=== PATIENT | male | born 1995 | race Two or more races ===

== ENCOUNTER 2017-06-22 17:20 | Emergency (ER) | payer SELFPAY ==
[~2017-06-22] VITALS: Ht 170.2 cm; Wt 63.5 kg
[~2017-06-22 17:20] MED LIST: NORPTMEDS CO
[2017-06-22 17:54] VITALS: BP 109/59
[2017-06-22] MEDS ORDERED: LIDOCAINE VISCOUS 2% 15ML UD PO ONE (21:15)
[2017-06-22] MEDS ORDERED: ALUM & MAG HYDROX-SIMETH LIQ(MAALOX) 30 ML PO ONE (21:15)
== END 2017-06-22 21:34 | disposition home or self-care (01) ==
LOC: ER 17:28
DX: K29.70 Gastritis, unspecified, without bleeding (principal)

== ENCOUNTER 2018-05-29 18:45 | Emergency (ER) | payer MEDICAID ==
[~2018-05-29] VITALS: Ht 167.6 cm; Wt 59.0 kg
[2018-05-29 19:02] VITALS: BP 124/79
== END 2018-05-30 00:34 | disposition home or self-care (01) ==
LOC: ER 18:45
DX: J06.9 Acute upper respiratory infection, unspecified (principal)

== ENCOUNTER 2018-06-01 17:38 | Emergency (ER) | payer MEDICAID ==
[~2018-06-01] VITALS: Ht 167.6 cm; Wt 62.6 kg
[2018-06-01 18:17] VITALS: BP 128/87
[2018-06-01] MEDS ORDERED: cefTRIAXone SOD 1,000 MG VL IM ONE (19:00)
[2018-06-01] MEDS ORDERED: methylPREDNISolone SOD SUCC 125 MG/2 ML VL IM ONE (19:00)
== END 2018-06-01 19:51 | disposition home or self-care (01) ==
LOC: ER 17:38
DX: J06.9 Acute upper respiratory infection, unspecified (principal)
CPT/HCPCS: 96372; 99283; J0696; J2930

== ENCOUNTER 2020-04-22 12:18 | Emergency (ER) | payer MEDICAID ==
[~2020-04-22] VITALS: Ht 167.6 cm; Wt 83.9 kg
[2020-04-22 12:59] VITALS: BP 123/80
[2020-04-22] MEDS ORDERED: ALBUTEROL SULF 2.5 MG/0.5ML(0.5%) NEB SOLN NEB ONE (13:30)
[2020-04-22] MEDS ORDERED: IPRATROPIUM BROM 0.5 MG/2.5ML INH SOL NEB ONE (13:30)
== END 2020-04-22 15:03 | disposition home or self-care (01) ==
LOC: ER 12:18
DX: J98.01 Acute bronchospasm (principal)
CPT/HCPCS: 71045; 93005; 94640; 99284; J7644

== ENCOUNTER 2020-10-07 06:07 | Emergency (ER) | payer MEDICAID ==
[~2020-10-07] VITALS: Ht 170.2 cm; Wt 62.6 kg
[2020-10-07 06:49] VITALS: BP 129/91
== END 2020-10-07 08:02 | disposition home or self-care (01) ==
LOC: ER 06:07
DX: S30.812A Abrasion of penis, initial encounter (principal); B37.42 Candidal balanitis; X58.XXXA Exposure to other specified factors, initial encounter; Y93.89 Activity, other specified; Y92.89 Other specified places as the place of occurrence of the external cause; Y99.8 Other external cause status

== ENCOUNTER 2020-11-10 20:07 | Emergency (ER) | payer MEDICAID ==
[~2020-11-10] VITALS: Ht 167.6 cm; Wt 65.8 kg
[2020-11-10 22:58] VITALS: BP 118/82
== END 2020-11-11 00:11 | disposition home or self-care (01) ==
LOC: ER 20:09
DX: L73.9 Follicular disorder, unspecified (principal); B37.42 Candidal balanitis; K62.89 Other specified diseases of anus and rectum

== ENCOUNTER 2021-01-31 23:17 | Emergency (ER) | payer MEDICAID ==
[~2021-01-31] VITALS: Ht 167.6 cm; Wt 63.5 kg
[2021-02-01 01:00] VITALS: BP 112/74
== END 2021-02-01 01:43 | disposition home or self-care (01) ==
LOC: ER 23:17
DX: F41.9 Anxiety disorder, unspecified (principal); F17.200 Nicotine dependence, unspecified, uncomplicated; F12.10 Cannabis abuse, uncomplicated; F32.9 Major depressive disorder, single episode, unspecified
CPT/HCPCS: 71045

== ENCOUNTER 2021-02-21 15:16 | Emergency (ER) | payer MEDICAID ==
[~2021-02-21] VITALS: Ht 167.6 cm; Wt 63.5 kg
[2021-02-21 21:43] VITALS: BP 114/78
== END 2021-02-21 23:13 | disposition home or self-care (01) ==
LOC: ER 15:16
DX: B37.42 Candidal balanitis (principal); L73.9 Follicular disorder, unspecified

== ENCOUNTER 2021-09-09 06:04 | Emergency (ER) | payer MEDICAID ==
[~2021-09-09] VITALS: Ht 167.6 cm; Wt 63.5 kg
[2021-09-09 06:14] VITALS: BP 109/62
[2021-09-09] MEDS ORDERED: KETO1AER EX (06:53)
== END 2021-09-09 07:17 | disposition home or self-care (01) ==
LOC: ER 06:04
DX: B37.42 Candidal balanitis (principal); Z79.899 Other long term (current) drug therapy

== ENCOUNTER 2021-09-24 23:18 | Emergency (ER) | payer MEDICAID ==
[~2021-09-24] VITALS: Ht 167.6 cm; Wt 64.0 kg
[~2021-09-24 23:18] MED LIST changes: +KETO1AER EX
[2021-09-25 00:47] VITALS: BP 124/82
== END 2021-09-25 07:12 | disposition left against medical advice (07) ==
LOC: ER 23:18
DX: B37.9 Candidiasis, unspecified (principal); Z53.21 Procedure and treatment not carried out due to patient leaving prior to being seen by health care provider

== ENCOUNTER 2021-11-08 06:52 | Emergency (ER) | payer MEDICAID ==
[~2021-11-08] VITALS: Ht 167.6 cm; Wt 61.7 kg
[2021-11-08 07:31] VITALS: BP 124/82
[2021-11-08] MEDS ORDERED: KETO2AER3 EX (07:48)
[2021-11-08] MEDS ORDERED: CEPH-509 PO (07:48)
== END 2021-11-08 08:10 | disposition home or self-care (01) ==
LOC: ER 06:52
DX: B37.42 Candidal balanitis (principal); K21.9 Gastro-esophageal reflux disease without esophagitis; F17.210 Nicotine dependence, cigarettes, uncomplicated

== ENCOUNTER 2022-07-04 12:14 | Emergency (ER) | payer MEDICAID ==
[~2022-07-04] VITALS: Ht 167.6 cm; Wt 63.0 kg
[~2022-07-04 12:14] MED LIST changes: +CEPH-509 PO; +CEPH-510 PO; +KETO2AER3 EX
[2022-07-04 14:57] VITALS: BP 136/77
[2022-07-04 16:25] LABS: Urine Bacteria NONE SEEN /hpf (None Seen); Urine Blood 1+ /uL (Negative); Urine Mucus FEW (None Seen); Urine Specific Gravity 1.018 (1.001-1.035); Urine WBC 1 /hpf (0 - 3)
[2022-07-04] MEDS ORDERED: cefTRIAXone SOD 1,000 MG VL IM ONE (16:45)
[2022-07-04] MEDS ORDERED: CEPH-510 PO (17:16)
[2022-07-04] MEDS ORDERED: FLUC150T38 PO (17:16)
[2022-07-04] MEDS ORDERED: HYD1TP TOP (17:16)
[2022-07-04] MEDS ORDERED: PETROIN22 EX (17:23)
== END 2022-07-04 17:29 | disposition home or self-care (01) ==
LOC: ER 12:14
DX: N48.1 Balanitis (principal); N30.90 Cystitis, unspecified without hematuria; K21.9 Gastro-esophageal reflux disease without esophagitis; F17.210 Nicotine dependence, cigarettes, uncomplicated
CPT/HCPCS: 74176; 81001; 87491; 87591; 96372; 99285; J0696

== ENCOUNTER 2022-09-26 19:00 | Emergency (ER) | payer MEDICAID ==
[~2022-09-26] VITALS: Ht 170.2 cm; Wt 63.0 kg
[~2022-09-26 19:00] MED LIST changes: +FLUC150T38 PO; +HYD1TP TOP; +PETROIN22 EX
[2022-09-26 20:53] LABS: Urine Bacteria NONE SEEN /hpf (None Seen); Urine Blood 2+ /uL (Negative); Urine Mucus FEW (None Seen); Urine WBC 1 /hpf (0 - 3)
[2022-09-26 23:10] VITALS: BP 140/83
== END 2022-09-26 23:31 | disposition home or self-care (01) ==
LOC: ER 19:00
DX: Z00.00 Encounter for general adult medical examination without abnormal findings (principal); N50.819 Testicular pain, unspecified; K21.9 Gastro-esophageal reflux disease without esophagitis; F17.210 Nicotine dependence, cigarettes, uncomplicated
CPT/HCPCS: 81001; 86592

== ENCOUNTER 2024-07-25 18:46 | Emergency (ER) | payer MEDICAID ==
[~2024-07-25] VITALS: Ht 167.6 cm; Wt 62.8 kg
--- NOTE | 2024-07-25 20:20 | ED.PDOC ---
General HPI Comments 29-year-old male presents to ER with penile complaint x3 weeks. Patient reports that he has been experiencing "spots and itching" to penis x3 weeks. States that he last had unprotected sex with a female three days ago and notes that he did test positive for syphilis in 2022. Patient presents to ER ambulatory on arrival, alert and oriented x4, with steady gait, in no distress with vitals stable and is noted to be a very poor historian. Denies fever, body aches, chills, night sweats, fatigue, n/v, shortness of breath, chest pain, headache, body aches/joint pain, back/flank pain, further skin changes, penile discharge/changes in urination or any further symptoms/complaints Chief Complaint: Penile Problem Time Seen by MD: 19:05 Primary Care Provider: [facility] Reviewed notes: Nurses Notes, Medications, Allergies Allergies: Coded Allergies: NO KNOWN ALLERGIES (Unverified , 05/29/18) Home Meds Active Scripts Petrolatum (PETROLEUM JELLY) Oin, 1 APPLIC EX BID, #368 GRAMS 0 Refills Apply topical to external perineal area BID for 7 days Prov:[facility]ONY [facility] 07/04/22 Hydrocortone (Hydrocortisone 1%) 1 Applic Ap, 1 APPLIC TOP BID for 7 Days, #30 GRAMS 0 Refills Prov:YONY WILEY [facility] 07/04/22 Fluconazole (Diflucan) 150 Mg Tab, 1 TAB PO ONCE, #1 TAB 0 Refills Prov:YONY WILEY [facility] 07/04/22 Cephalexin ( Keflex 500) 500 Mg Cap, 1 CAP PO QID for 10 Days, #40 CAP 0 Refills Prov:YONY WILEY [facility] 07/04/22 Cephalexin ( Keflex 500) 500 Mg Cap, 1 CAP PO QID, #28 CAP Prov:KELLEY KEARNEY 01/20/22 Cephalexin (KEFLEX 500) 500 Mg Cap, 1 CAP PO BID for 7 Days, #14 CAP 0 Refills Prov:JILLIAN LR 11/08/21 Ketoconazole (Topical) (KETOCONAZOLE) 2 % Aer, 2 % EX DAILY for 14 Days, #1 AER 0 Refills Prov:JILLIAN LR 11/08/21 Ketoconazole (Topical) (Extina) 2 % Aer, 2 % EX BID, #30 AER Prov:KELLEY KEARNEY ABNER 09/09/21 Reported Medications No Reported Medication (NO REPORTED MEDICATION) Ea, 0 CO UNK, EA PATIENT HAS NO REPORTED MEDICATIONS 03/02/13 Information Source: Patient Mode of Arrival: Ambulatory Past Medical History PAST MEDICAL HISTORY: Anxiety, GERD Past Medical History (Other): SYPHILLIS- 2022 Surgical History: Denies all surgeries Family History Family History: Unknown Social History Smoker: Cigarettes, Less Than 1 Pack/Day Alcohol: Occasionally Drugs: Denies Drug Use Lives In: Home Constitutional: denies: chills, diaphoresis, fatigue, fever, malaise, sweats, weakness, others EENTM: denies: blurred vision, double vision, ear bleeding, ear discharge, ear drainage, ear pain, ear ringing, eye pain, eye redness, hearing loss, mouth pain, mouth swelling, nasal discharge, nose bleeding, nose congestion, nose pain, photophobia, tearing, throat pain, throat swelling, voice changes, others Respiratory: denies: cough, hemoptysis, orthopnea, SOB at rest, shortness of breath, SOB with excertion, stridor, wheezing, others Cardiovascular: denies: chest pain, dizzy spells, diaphoresis, Dyspnea on exertion, edema, irregular heart beat, left arm pain, lightheadedness, palpitations, PND, syncope, others Gastrointestinal: denies: abdomen distended, abdominal pain, blood streaked bowels, constipated, diarrhea, dysphagia, difficulty swallowing, hematemesis, melena, nausea, poor appetite, poor fluid intake, rectal bleeding, rectal pain, vomiting, others Genitourinary: reports: others (As stated in HPI) Neurological: denies: dizziness, fainting, headache, left sided numbness, left sided weakness, numbness, paresthesia, pre-existing deficit, right sided num bness, right sided weakness, seizure, speech problems, tingling, tremors, weakness, others Musculoskeletal: denies: back pain, gout, joint pain, joint swelling, muscle pain, muscle stiffness, neck pain, others Integumetry: reports: others (As stated in HPI) Allergic/Immunocompromised: denies: Difficulty Healing, Frequent Infections, Hives, Itching, others Hematologic/Lymphatic: denies: anemia, blood clots, easy bleeding, easy bruising, swollen glands, others Endocrine: denies: excessive hunger, excessive sweating, excessive thirst, excessive urination, flushing, intolerance to cold, intolerance to heat, unexplained weight gain, unexplained weight loss, others Psychiatric: denies: anxiety, bipolar disorder, depression, hopeless, panic disorder, schizophrenia, sleepless, suicidal, others Physical Exam General Appearance: No Apparent Distress HEENT: PERRL/EOMI Neck: Full Range of Motion, Non-Tender, Normal Respiratory: Chest Non-Tender, Lungs Clear, No Accessory Muscle Use, No Respiratory Distress, Normal Breath Sounds Cardiovascular: No Murmur, No Gallop, Regular Rate/Rhythm Breast Exam: Deferred Gastrointestinal: No Organomegaly, Non Tender, No Pulsatile Mass, Normal Bowel Sounds, Soft Genitalia: Other (No rash/skin changes or penile discharge noted. Unremarkable genitalia examination) Pelvic: Deferred Rectal: Deferred Extremities: Normal capillary refill, Normal range of motion Neurologic: Alert, sand buffer II-XII nml as Tested, No Motor Deficits, Normal Affect, Normal Mood, No Sensory Deficits Cerebellar Function: Normal Reflexes: Normal Skin: Dry, Normal Color, Warm Lymphatic: No Adenopathy Was a procedure done? Was a procedure done?: No Sedation Sedation?: No Differential Diagnosis Kidney stone (Female): N/A Urinary Problem (Male): Epididymitis, Urethritis, Urinary Retention, Urolithiasis, Other (SYPHILIS) X-Ray, Labs, Meds, VS Vital Signs Date Time Temp Pulse Resp B/P (MAP) Pulse Ox O2 Delivery O2 Flow Rate FiO2 07/25/24 21:46 99.0 95 20 121/89 (100) 99 99.0 07/25/24 20:11 97 16 98 Room Air 07/25/24 20:11 99.2 97 16 126/80 (95) 98 99.2 07/25/24 19:35 99.2 97 16 126/80 (95) 98 99.2 Lab Test 07/25/24 20:57 07/25/24 19:57 Range/Units Rapid Plasma Reagin Pending Treponema pallidum Antibody Reactive *A Negative Urine Color Yellow Yellow Urine Clarity Clear Clear Urine pH 5.5 5.0-9.0 Urine Specific [place] 1.034 1.001-1.035 Urine Protein 1+ H Negative Urine Ketones 2+ H Negative Urine Blood 2+ H Negative /uL Urine Nitrite Negative Negative Urine Bilirubin Negative Negative Urine Urobilinogen Normal Negative mg/dL Urine Leukocyte Esterase Negative Negative /uL Urine RBC 13 0 - 3 /hpf Urine Microscopic WBC 1 0-3 /HPF Urine Squamous Epithelial Cells None seen <5 /hpf Urine Bacteria None seen None Seen /hpf Urine Mucus Moderate None Seen Urine Glucose Trace Normal mg/dL Chlamydia trachomatis (RAO) Pending Neisseria gonorrhoeae (RAO) Pending Current Medications Medications (Trade) Dose Ordered Sig/Robert Route Start Time Stop Time Status Last Admin Penicillin G Benzathine (Bicillin L-A) 2,400,000 units ONCE ONCE IM 07/25/24 20:30 07/25/24 20:31 DC 07/25/24 20:44 Urinalysis reviewed without any significant abnormalities Penicillin 2.4 million units IM ordered Treponema pallidum Ab reviewed- reactive RPR ordered Safe sex practices discussed and advised Patient was provided information with regards to local public Health Department and advised to follow up as soon as possible for further STD testing Patient was also encouraged to advised sexual partners to be tested for STDs Advised to follow up with PCP in 1-2 days Patient verbalized understanding and agreeable with current plan of care Advised to return to ER immediately if symptoms worsen Time of 1ST Reevaluation: 19:54 Reevaluation 1ST: N/A Patient Education/Counseling: Diagnosis, Treatment, Prognosis, Need For Follow Up Family Education/Counseling: No Family Present Departure 1 Departure Time of Disposition: 20:12 Impression: Primary Impression: Exposure to STD Disposition: 01 HOME / SELF CARE / HOMELESS Condition: Stable Critical Care Note Critical Care Time?: No Stability Stability form required: No Heart Score Heart Score: Heart Score Response (Comments) Value History N/A 0 EKG N/A 0 Age N/A 0 Risk Factors N/A 0 Troponin N/A 0 Total 0 JILLIAN LR July 25, 2024 20:20
[2024-07-25] MEDS: PENICILLIN G BENZ 1,200,000 UNITS/2 ML SYRG IM ONE (20:44)
[2024-07-25 20:57] LABS: Urine Bacteria None Seen /hpf (None Seen)
[2024-07-25 21:08] LABS: Urine Blood 2+ /uL (Negative); Urine Clarity Clear (Clear); Urine Color Yellow (Yellow); Urine Mucus MODERATE (None Seen); Urine Protein, UAD 1+ (Negative); Urine Specific Gravity 1.034 (1.001-1.035); Urine Squamous Epithelial Cell None Seen /hpf (<5); Urine Urobilinogen Normal (Negative); Urine WBC 1 /HPF (0-3); Urine pH 5.5 (5.0-9.0)
[2024-07-25 21:46] VITALS: BP 121/89; PULSE 95; RESP 20; TEMP 99; O2SAT 99
[2024-07-26 14:50] LABS: RAPID PLASMA REAGIN REACTIVE (NONREACTIVE)
[2024-07-27 17:07] LABS: Chlamydia Trachomatis, NAA Negative (Negative); Neisseria gonorrhoeae, NAA Negative (Negative)
== END 2024-07-25 22:37 | disposition home or self-care (01) ==
LOC: ER 18:51
DX: A64 Unspecified sexually transmitted disease (principal); F17.210 Nicotine dependence, cigarettes, uncomplicated; K21.9 Gastro-esophageal reflux disease without esophagitis; Z20.2 Contact with and (suspected) exposure to infections with a predominantly sexual mode of transmission
CPT/HCPCS: 36415; 81001; 86592; 86593; 86780; 87491; 87591; 96372; 99283; J0561